=== PATIENT | female | born 1975 | race Caucasian/White ===

== ENCOUNTER 2016-11-13 17:39 | Emergency (ER) | payer MEDICAID ==
[~2016-11-13 17:39] MED LIST: DULCOLAX-DPS10 MG PR; MOBIC DPS7.5 MG PO; SENOKOT S1 TAB PO; ULTRAM DPS50 MG PO
--- NOTE | 2016-11-18 19:21 | ER ---
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 The patient was transported by ambulance. Exam remarkable for nontoxic, afebrile female with left partial hemiparesis. CT, no acute findings of postop craniotomy and right middle cerebral infarct. Chest x-ray, negative. Hemoglobin 11.9, lactic 1.3, CRP 0.29, troponin 0.060, BNP 39, INR 1.02. The patient was given Ativan 1 mg IV push, Keppra 1 g IV piggyback. Home with Keppra 500 mg b.i.d. #60. Follow up with Dr. Herring for ongoing care. Scott Muniz MD/ zandra JOB #: [id number] CC: Prateek Perkins MD, Attending Physician Lian Herring MD, Family Physician Lian Herring MD
[2017-03-08] MEDS ORDERED: FLONASE 0.05% D16 GM NS (15:41)
[2017-03-08] MEDS ORDERED: KEPPRA DPS500 MG PO (15:41)
[2017-03-08] MEDS ORDERED: COLACE-DPS100 MG PO (15:42)
[2017-03-08] MEDS ORDERED: MAALOX DPS30 ML PO (15:42)
[2017-03-08] MEDS ORDERED: MACROBID100 MG PO (15:42)
== END 2016-11-13 20:20 | disposition home or self-care (01) ==
LOC: ER 17:39
DX: G40.909 Epilepsy, unspecified, not intractable, without status epilepticus (principal); F32.9 Major depressive disorder, single episode, unspecified; F41.9 Anxiety disorder, unspecified; D64.9 Anemia, unspecified; Z98.890 Other specified postprocedural states; Z88.0 Allergy status to penicillin; Z86.73 Personal history of transient ischemic attack (TIA), and cerebral infarction without residual deficits